=== PATIENT | male | born 1940 | race Caucasian/White ===

== ENCOUNTER 2017-05-14 13:06 | Inpatient (IN) | payer MEDICARE ==
[~2017-05-14] VITALS: Ht 172.7 cm; Wt 90.9 kg
[2017-05-14] VITALS (9 sets, daily range): BP systolic 138–157; BP diastolic 70–79; PULSE 49–77; RESP 15–18; TEMP 98–98.7; O2SAT 96–98
[2017-05-14] MEDS ORDERED: NITROGLYCERIN 0.4 MG SL 25 TABS/BTL SL ONE (13:11)
[2017-05-14] MEDS ORDERED: HEPARIN SODIUM - IV 10,000 UNITS/10 ML VIAL ONE ×2 (13:11→13:14)
[2017-05-14] MEDS ORDERED: ASPIRIN 81 MG CHEW TAB ONE (13:11)
[2017-05-14] MEDS ORDERED: HEPARIN SODIUM - IV 10,000 UNITS/10 ML VIAL IV PUSH STA (13:14)
[2017-05-14] MEDS ORDERED: HEPARIN-NS/PF INJ 1,000 ML ONE (13:14)
[2017-05-14] MEDS ORDERED: SODIUM CHLOR 0.9% 1000 ML INJ 1,000 ML IV ONE (13:14)
[2017-05-14] MEDS ORDERED: ASPIRIN 81 MG CHEW TAB PO STA (13:14)
[2017-05-14] MEDS ORDERED: SODIUM CHLORIDE 0.9% FLUSH 10 ML FLUSH IVF PRN (13:15)
[2017-05-14] MEDS ORDERED: MIDAZOLAM HCL 2 MG/2 ML VIAL ONE (13:21)
--- NOTE | 2017-05-14 13:27 | PD ---
HPI Chief Complaint: STEMI alert Time Seen by Provider: 13:12 Travel History International Travel<30 days: No Contact w/Intl Traveler<30days: No Traveled to known affect area: No History of Present Illness HPI This patient [place] and developed a sternal chest pain and pressure. He pulled out the side of the road and called 911. He presents as a STEMI alert. His chest pain is 30 minutes duration. It was 10 out of 10 and very severe. He took 2 sublingual nitroglycerin. Paramedics gave him 2 further for a total of 4 sublingual nitroglycerin and pain is now 3 out of 10. He reports history of cardiac disease and has 7 stents but no recent testing. [place] and has no local physician or conveyor worker here. Severity was severe but now moderate. No exacerbating factors. Pain was partially alleviated by sublingual nitroglycerin. [facility] Social History Alcohol Use: No Tobacco Use: No Substance Use: No Allergies-Medications (Allergen,Severity, Reaction): Uncoded Allergies: cranberries (Adverse Reaction, Mild, Rash, 05/14/17) Review of Systems General / Constitutional: No: Fever Eyes: No: Visual changes HENT: No: Headaches Cardiovascular: Positive: Chest Pain or Discomfort Respiratory: No: Shortness of Breath Gastrointestinal: No: Abdominal Pain Genitourinary: No: Dysuria Musculoskeletal: No: Pain Skin: No Rash Neurologic: No: Weakness Psychiatric: No: Depression Endocrine: No: Polydipsia Hematologic/Lymphatic: No: Easy Bruising Physical Exam Narrative GENERAL: Well-nourished, well-developed patient with chest pain . SKIN: Focused skin assessment reveals no rash and nodules. Skin is Warm and dry. HEAD: Atraumatic. Normocephalic. EYES: Pupils equal and round. No scleral icterus. No injection or drainage. ENT: No nasal bleeding or discharge. Mucous membranes pink and moist. NECK: Trachea midline. No JVD. CARDIOVASCULAR: Regular rate and rhythm. No murmur appreciated. RESPIRATORY: No accessory muscle use. Clear to auscultation. Breath sounds equal bilaterally. GASTROINTESTINAL: Abdomen soft, non-tender, nondistended. Hepatic and splenic margins not palpable. MUSCULOSKELETAL: No obvious deformities. No clubbing. No cyanosis. No edema. NEUROLOGICAL: Awake and alert. No obvious cranial nerve deficits. Motor grossly within normal limits. Normal speech. PSYCHIATRIC: Appropriate mood and affect; insight and judgment normal. Data Data Last Documented VS Vital Signs Date Time Temp Pulse Resp B/P (MAP) Pulse Ox O2 Delivery O2 Flow Rate FiO2 05/14/17 13:13 64 18 138/79 (98) 98 05/14/17 13:10 Non-Rebreather 15.00 05/14/17 13:10 98.0 Orders Orders Heparin Inj (Heparin Inj) (05/14/17 13:11) Aspirin Chew (Aspirin Chew) (05/14/17 13:11) Nitroglycerin Sl (Nitrostat Sl) (05/14/17 13:11) Cardiac Catheterization (05/14/17 ) Heparin-Ns/Pf Inj (Heparin-Ns/Pf Inj) (05/14/17 13:14) Heparin Inj (Heparin Inj) (05/14/17 13:14) Troponin I (05/14/17 13:14) Ckmb (Isoenzyme) Profile (05/14/17 13:14) Complete Blood Count With Diff (05/14/17 13:14) I-Stat Profile (05/14/17 13:14) I-Stat Creatinine (05/14/17 13:14) Calcium (05/14/17 13:14) Magnesium (Mg) (05/14/17 13:14) Prothrombin Time / Inr (Pt) (05/14/17 13:14) Act Partial Throm Time (Ptt) (05/14/17 13:14) B-Type Natriuretic Peptide (05/14/17 13:14) Chest, Single Ap (05/14/17 13:14) Electrocardiogram (05/14/17 13:14) Oxygen Administration (05/14/17 13:14) Iv Access Insert/Monitor (05/14/17 13:14) Oximetry (05/14/17 13:14) Sodium Chlor 0.9% 1000 Ml Inj (Ns 1000 M (05/14/17 13:14) Sodium Chloride 0.9% Flush (Ns Flush) (05/14/17 13:15) Heparin Inj (Heparin Inj) (05/14/17 13:14) Aspirin Chew (Aspirin Chew) (05/14/17 13:14) Midazolam Inj (Versed Inj) (05/14/17 13:21) Fentanyl Inj (Fentanyl Inj) (05/14/17 13:21) Labs Laboratory Tests Test 05/14/17 13:10 White Blood Count 8.8 TH/MM3 Red Blood Count 4.06 MIL/MM3 Hemoglobin 13.2 GM/DL Bedside Hemoglobin 12.9 G/DL Hematocrit 39.0 % Bedside Hematocrit 38.0 % Mean Corpuscular Volume 96.0 FL Mean Corpuscular Hemoglobin 32.4 PG Mean Corpuscular Hemoglobin Concent 33.8 % Red Cell Distribution Width 14.6 % Platelet Count 246 TH/MM3 Mean Platelet Volume 9.4 FL Neutrophils (%) (Auto) 51.1 % Lymphocytes (%) (Auto) 34.7 % Monocytes (%) (Auto) 8.8 % Eosinophils (%) (Auto) 4.8 % Basophils (%) (Auto) 0.6 % Neutrophils # (Auto) 4.5 TH/MM3 Lymphocytes # (Auto) 3.0 TH/MM3 Monocytes # (Auto) 0.8 TH/MM3 Eosinophils # (Auto) 0.4 TH/MM3 Basophils # (Auto) 0.1 TH/MM3 CBC Comment DIFF FINAL Differential Comment Bedside Sodium 138 MMOL/L Bedside Potassium 4.6 MMOL/L Bedside Chloride 105 MMOL/L Bedside Blood Urea Nitrogen 24 MG/DL Bedside Creatinine 1.1 MG/DL Bedside Glucose 128 MG/DL [facility] Medical Decision Making Medical Screen Exam Complete: Yes Emergency Medical Condition: Yes Medical Record Reviewed: Yes Differential Diagnosis STEMI, angina, ACS Narrative Course I have reviewed the patient's electronic medical record. I reviewed multiple EKGs taken by paramedics. Patient arrives critically ill with acute STEMI 2 IVs placed I gave him 2 further baby aspirin for total of 4 I reviewed our EKG which shows ST elevation in leads V2 through V4 with reciprocal changes in inferior leads Patient meets criteria for STEMI alert. I gave him a 60 mg/kg heparin bolus Blood pressure now 130s and in a sinus rhythm Extended cardiac monitoring reveals sinus rhythm without ectopy I reviewed in detail with conveyor worker Dr. Solis He will take him for emergent heart catheterization I'm going to admit the patient to [facility] given his acute anterior STEMI I've ordered the STEMI protocol CBC is normal Metabolic profile is normal I reviewed his chest x-ray which suggest a degree of pulmonary edema although he didn't complain of shortness of breath. Patient has gone to the catheterization lab by the time the x-rays put on line for me to review Critical Care Narrative Aggregate critical care time was 32 minutes. Time to perform other separately billable procedures was not included in the critical care time. My time did not include minutes spent treating any other patients simultaneously or on activities that did not directly contribute to the patient's treatment. The services I provided to this patient were to treat and/or prevent clinically significant deterioration that could result in: Myocardial injury, heart failure with reduced ejection fracture, cardiopulmonary arrest, cardiac arrhythmia I provided critical care services requiring my management, as noted below: Chart data review, documentation time, medication orders and management, vital sign assessments/reviewing monitor data, ordering and reviewing lab tests, ordering and interpreting/reviewing x-rays and diagnostic studies, care of the patient and discussion of the patient with the admitting physicians. Diagnosis Primary Impression: ST elevation UT (STEMI) Qualified Codes: I21.02 - ST elevation (STEMI) myocardial infarction involving left anterior descending coronary artery Admitting Information Admitting Physician Requests: Admit Trevin Mathew MD May 14, 2017 13:27
[2017-05-14 13:32] LABS: AUTOMATED NEUTROPHIL # 4.5 TH/MM3 (1.8-7.7); BASOPHIL # 0.1 TH/MM3 (0-0.2); BASOPHIL % 0.6 % (0.0-2.0); EOSINOPHIL # 0.4 TH/MM3 (0-0.4); EOSINOPHIL % 4.8 % (0.0-4.0); HEMOGLOBIN 13.2 GM/DL (13.0-17.0); LYMPH % 34.7 % (9.0-44.0); MEAN CORPUSCULAR HEMOGLOBIN 32.4 PG (27.0-34.0); MEAN CORPUSCULAR HGB CONC 33.8 % (32.0-36.0); MEAN PLATELET VOLUME 9.4 FL (7.0-11.0); MONO % 8.8 % (0.0-8.0); MONOCYTE # 0.8 TH/MM3 (0-0.9); NEUT % 51.1 % (16.0-70.0); PLATELET COUNT 246 TH/MM3 (150-450); RED BLOOD COUNT 4.06 MIL/MM3 (4.50-5.90); RED CELL DISTRIBUTION WIDTH 14.6 % (11.6-17.2); WHITE BLOOD COUNT 8.8 TH/MM3 (4.0-11.0)
[2017-05-14 13:41] LABS: PROTHROMBIN TIME - PATIENT 9.9 SEC (9.8-11.6)
--- NOTE | 2017-05-14 13:48 | RADRPT ---
EXAM DATE/TIME: 05/14/2017 13:20 [place] COMPARISON: No previous studies available for comparison. INDICATIONS : Stemi alert, prior stents MEDICAL HISTORY : Myocardial infarction. SURGICAL HISTORY : Coronary artery stent. ENCOUNTER: Initial ACUITY: 1 day PAIN SCORE: 10/10 LOCATION: Chest FINDINGS: Portable AP view of the chest demonstrates a normal-sized cardiac silhouette. Lungs are mildly underi nflated. There is interstitial prominence bilaterally with lower lung zone predominance. No pleural e ffusion or pneumothorax is identified. The bones and soft tissues demonstrate no acute finding. CONCLUSION: Mild underinflation with mild interstitial prominence bilaterally. Some of this could be related to a telectasis at the lung bases. Mild pulmonary edema could have a similar appearance. Neftaly Monae MD on May 14, 2017 at 13:44 Board Certified Radiologist. This report was verified electronically.
[2017-05-14 13:52] LABS: CALCIUM 9.1 MG/DL (8.5-10.1)
[2017-05-14 14:07] LABS: TROPONIN I 0.02 NG/ML (0.02-0.05)
[2017-05-14 14:09] LABS: MAGNESIUM 2.3 MG/DL (1.5-2.5)
[2017-05-14] MEDS ORDERED: CANGRELOR TETRASODIUM 50,000 MCG VIAL ONE (14:23)
[2017-05-14] MEDS ORDERED: TICAGRELOR 90 MG TAB PO ONE ×2 (14:26→15:45)
--- NOTE | 2017-05-14 15:04 | CATHPROC ---
[employer] HIS Report Study Information Study Number Admission Scheduled Start Study Start [id number] May 14 2017 1:06PM 05/14/2017 May 14 2017 1:19PM [facility] Cardiac Catheterization Admit Source Facility Department Emergency department [facility] - Desk Pen Set Assembler Physician and Clinical Staff Initial Mehul Ward Gis Developer Yang RN, Edgar Recorder Lencho Lopez,RT(R) Scrub Burt, Celi,PAINTING MANAGER TECH2 Procedures Performed Procedure Location (Site) Vessel Name Angiogram LV LV Ventricle Coronary Angiograms LCA Left Coronary Coronary Angiograms RCA Right Coronary Drug Eluting Inflatio LAD Mid Left Coronary L Heart Cath PTCA LAD Mid Left Coronary Wire insertion Fem Art (right) Femoral Art Equipment Time Plating Technician Description Size Mfg Part Number Used/Scraped WIRE, BALANCE MIDDLEWEIGHT [id number] 13:59 [employer] 190CM Used 190CM *[id number] TRANSDUCER, TRUWAVE [id number] 13:35 [employer] * Used W/STOCKCOCK *[id number] *[id number] 14:26 DAIG[employer]. [employer] ANGIOSEAL, FR6 VIP FR 6 Used *[id number] 13:35 [employer] INDUSTRIES PACK, CCL CUSTOM * Used *[id number] 13:35 [employer] PACER PEN, SKIN DUAL W/ RULER * Used *[id number] 13:53 [employer] AR MOD DXTERITY CATHETER FR 5 [id number] Used [id number] 14:08 [employer] BALLOON, 2.5 X 12MM EUPHORA 12MM Used *[id number] 14:01 [employer] CATHETER, EXPORT ASPIRATON Used *[id number] 13:55 [employer] JL 4.0 DXTERITY CATHETER FR 5 Used *[id number] 14:13 [employer] STENT, 2.75 15MM HUMPHREY 2.75 15MM Used *[id number] 14:09 [employer] MEDICAL 30 HESHAM INDEFLATOR Used *[id number] [id number] 14:23 [employer] PIGTAIL ANG. CATHETER FR 5 Used *[id number] 14:00 [employer] SHEATH, FR6.5 PRELUDE 11CM FR 6.5 038ACT Used *[id number] 13:35 [employer] WIRE, 3MMJ .035 180CM 180CM Used *[id number] PROBE COVER, STERILE [id number] 13:35 [employer] * Used ULTRASOUND W/ GEL *[id number] 13:35 NAMIC MANIFOLD, 4 PORT * Used *[id number] 13:35 NAMIC TUBING, HIGH PRESSURE 48" 48" Used *[id number] 13:35 [employer] OMNIPAQUE, 350 MG, 150ML 150ML [id number] Used [id number] 13:35 [employer],WARM AIR CCL * Used *[id number] 13:35 [employer] SHEATH, FR5 TERUMO (10CM) FR 5 Used *[id number] Equipment Model, Serial, Lot Number and Expiration Data Description Model Number Serial Number Lot Number Expiration Date ANGIOSEAL, FR6 VIP [id number] 12-27-2017 CATHETER, EXPORT ASPIRATON [id number] 12-20-2018 STENT, 2.75 15MM HUMPHREY [id number] 12-26-2018 History: Allergies Allergy Reaction cranberries Rash History: Risk Factors Family History of Hypertension Dyslipidemia Previous [place] Previous Heart Failure Premature CAD Yes No No Yes Yes Prior Valve Prior PCI Prior PCIDate Prior CABG Surgery No Yes 04/29/2004 No Cerebrovascular Peripheral Artery Chronic Lung On Dialysis Diabetes Disease Disease Disease No Yes No No No History: Stress Tests Stress or Imaging Studies Performed No History: Other Current Smoker No Labs Hgb (g/dl) Hct (%) 11.60-17.00 35.00-51.00 12.9 38 Glucose (mg/dl) BUN (mg/dl) Creatinine (mg/dl) BUN:Creatinine (1:x) 74.00-106.00 7.00-18.00 0.50-1.30 10.00-20.00 128 24 1.1 21.8 K (meq/l) 3.50-5.10 4.6 CPK-MB (ng/ML) 0.50-3.60 Not Drawn Medication Medication Total Dose (Bolus/Oral) Medication Total Dosage/Unit 1% XYLOCAINE 20 mL BRILINTA 180 mg FENTANYL 50 mcg HEPARIN 6000 units NTG (IC) 600 mcg VERSED 2 mg Medications (Bolus/Oral) Medication Time Given Dosage/Unit Administered By Reason FENTANYL 05/14/2017 1:48:07 PM 50 mcg Edgar Soria RN 50 mcg FENTANYL given in lab by Edgar Soria RN in Left Antecubital via Peripheral IV. Ordered by Mehul Henderson. VERSED 05/14/2017 1:49:26 PM 2 mg Edgar Soria RN 2 mg VERSED given in lab by Edgar Soria RN in Left Antecubital via Peripheral IV. Ordered by Mehul Solis. 1% XYLOCAINE 05/14/2017 1:50:28 PM 20 mL Mehul Solis 20 mL 1% XYLOCAINE given in lab by Mehul Solis via Subcutaneous. Ordered by Mehul Solis. HEPARIN 05/14/2017 1:59:00 PM 4000 units Mehul Solis 4000 units HEPARIN given in lab by Mehul Solis in Left Antecubital via Peripheral IV. Ordered by Mehul Solis. NTG (IC) 05/14/2017 2:06:36 PM 200 mcg Mehul Solis 200 mcg NTG (IC) given in lab by Mehul Solis via Intra-coronary. Ordered by Mehul Solis. NTG (IC) 05/14/2017 2:10:56 PM 100 mcg Mehul Solis 100 mcg NTG (IC) given in lab by Mehul Solis via Intra-coronary. Ordered by Mehul Solis. HEPARIN 05/14/2017 2:11:23 PM 2000 units Edgar Soria RN 2000 units HEPARIN given in lab by Edgar Soria RN in Left Antecubital via Peripheral IV. Ordered by Mehul Solis. NTG (IC) 05/14/2017 2:16:19 PM 100 mcg Mehul Solis 100 mcg NTG (IC) given in lab by Mehul Solis via Intra-coronary. Ordered by Mehul Solis. NTG (IC) 05/14/2017 2:19:09 PM 100 mcg Mehul Solis 100 mcg NTG (IC) given in lab by Mehul Solis via Intra-coronary. Ordered by Mehul Solis. NTG (IC) 05/14/2017 2:20:24 PM 100 mcg Mehul Solis 100 mcg NTG (IC) given in lab by Mehul Solis via Intra-coronary. Ordered by Mehul Solis. BRILINTA 05/14/2017 2:36:13 PM 180 mg Edgar Soria RN 180 mg BRILINTA given in lab by Edgar Soria RN via Oral. Ordered by Mehul Solis. Medication (Drip) Medication Time Given Dosage/Unit Concentration/Unit Diluent (ml) Solution IV Solutions 05/14/2017 1:30:11 PM 0 mL (IV) 500 NaCl .9 Patient arrived on IV Solutions given by Mehul Solis in Left Antecubital via Peripheral IV. Pump/ Drip Flow = 20 ml/hr using NaCl .9. Ordered by Mehul Solis. KENGREAL BOLUS 05/14/2017 2:30:39 PM 13.5 mL 13.5 mL KENGREAL BOLUS given in lab by Edgar Soria RN via Peripheral IV. Ordered by Mehul Solis. KENGREAL DRIP 05/14/2017 2:41:41 PM 4.037 mcg/kg/min 50 mg 250 NaCl .9 4.037 mcg/kg/min KENGREAL DRIP given in lab by Edgar Soria RN via Peripheral IV. Pump/Drip Flow = 10 9 ml/hr using NaCl .9 with a concentration of 50 mg in 250 ml. Ordered by Mehul Solis. Initial Case Assessment Cardiovascular HR Rhythm NIBP Chest Pain 60 stemi 163/86 0 Edema Present Skin color Skin None Normal Warm Dry Circulatory - Right Pulses Dorsalis Pedis Femoral 3 3 Scale (0,1,2,3,4,d) Circulatory - Left Pulses Dorsalis Pedis Femoral 3 3 Scale (0,1,2,3,4,d) Neurological State Oriented to time-place- Alert Moves all extremities person Respiration - General Respiration Rate SpO2 (%) O2 (lpm) (B/min) 18 98 0 Final Case Assessment Cardiovascular HR Rhythm NIBP Chest Pain 60 sr 140/76 0 Edema Present Skin color Skin None Normal Warm Dry Circulatory - Right Pulses Dorsalis Pedis Femoral 3 3 Scale (0,1,2,3,4,d) Circulatory - Left Pulses Dorsalis Pedis Femoral 3 3 Scale (0,1,2,3,4,d) Neurological State Oriented to time-place- Alert Moves all extremities person Respiration - General Respiration Rate SpO2 (%) O2 (lpm) (B/min) 18 98 0 Chronological Log Time Study Chronological Log 13:27:39 Patient arrived via Bed. 13:27:45 Patient Name, D.O.B, / Armband Verified By R.N. 13:29:53 Patient has been NPO for Less than 6Hrs. 13:29:54 Skin Breakdown-none present per patient. 13:29:55 Patient Warmer Placed on the Table. 13:30:04 Disposable Defibrillator Pads Placed On Patient. 13:30:10 A # 20 IV was noted in the Antecubital (left). Grade = 0 Patient arrived on IV Solutions given by Mehul Solis in Left Antecubital via Peripheral IV. Pump/Drip Flow = 20 13:30:11 ml/hr using NaCl .9. Ordered by Mehul Solis. Assessment: Initial Case, HR=60 BPM, Rhythm=stemi, RPFI=867/86 mmhg, Chest Pain=0, Edema=None, Color=Normal, Skin = Warm, Dry Right Pulses: Andrade Ped=3, Femoral=3 13:30:19 Left Pulses: Andrade Ped=3, Femoral=3 Neurological: State=Alert, Ox3, JIMENEZ Respiration: Resp=18 B/min, SpO2=98 %, O2=0 lpm Vitals capture started with the following parameters, Patient=Adult, Interval=5 min, Initial Pr qrxzsp=438 mmHg, 13:30:48 Deflation Rate=5 mmHg, Cuff placed on Left Arm 13:31:34 A # 20 IV was noted in the Hand (right). Grade = 0 13:32:03 HR=50 bpm, RIFB=992/86 mmhg, SpO2=97.0 %, Resp=20 B/min 13:33:11 History and physical on the chart or being dictated. 13:33:18 Reference ECG taken 13:33:51 Bilateral groins prepped with 2% chlorhexidine, and draped after a 3 minute waiting time. 13:36:29 Pressure channel 1 zeroed. 13:36:30 HR=57 bpm, CIFU=604/78 mmhg, SpO2=95.0 %, Resp=24 B/min, Elmore=2 13:38:33 MD paged 13:41:31 HR=53 bpm, RWTN=070/78 mmhg, SpO2=97.0 %, Resp=20 B/min, Elmore=2 13:43:47 Reference ECG taken 13:45:01 MD arrived. 13:46:32 HR=51 bpm, HNJU=920/72 mmhg, SpO2=98.0 %, Resp=15 B/min, Elmore=2 13:48:07 50 mcg FENTANYL given in lab by Edgar Soria RN in Left Antecubital via Peripheral IV. Orde red by Mehul Solis. 13:49:26 2 mg VERSED given in lab by Edgar Soria RN in Left Antecubital via Peripheral IV. Ordered by Mehul Solis. Time Out. Correct patient, correct procedure, correct physician, power injector not loaded with contrast with surgical 13:50:23 team present. Time Out Concurred by MD and individual staff in procedure. 13:50:25 Case Start 13:50:28 20 mL 1% XYLOCAINE given in lab by Mehul Solis via Subcutaneous. Ordered by Alpesh Solis. 13:51:27 HR=60 bpm, EPXR=273/78 mmhg, SpO2=94.0 %, Resp=21 B/min, Elmore=2 13:51:39 Access site was Right Femoral Artery. 13:51:49 A SHEATH, FR5 TERUMO (10CM) FR 5 was advanced into the Fem Art (right) using the Percutaneo us technique. 13:52:20 Activated Clotting Time Drawn A AR MOD DXTERITY CATHETER FR 5 was advanced over a wire. OMNIPAQUE, 350 MG, 150ML 150ML was us ed for 13:52:44 injections. Recorded Pressure: Ao, HR=51, Condition=Condition 1 13:53:55 (Aorta) Ao 146/54/87 13:54:28 The RCA was injected and visualized at various angles. OMNIPAQUE, 350 MG, 150ML 150ML used . 13:54:50 Catheter was removed A JL 4.0 DXTERITY CATHETER FR 5 was advanced over a wire. OMNIPAQUE, 350 MG, 150ML 150ML was us ed for 13:54:52 injections. 13:55:43 ACT (Normal Range 90-180) = 180 13:56:02 The LCA was injected and visualized at various angles. OMNIPAQUE, 350 MG, 150ML 150ML used . 13:56:30 HR=58 bpm, OEDI=100/76 mmhg, SpO2=95.0 %, Resp=18 B/min, Elmore=2 13:58:02 Catheter was removed 13:59:00 4000 units HEPARIN given in lab by Mehul Solis in Left Antecubital via Peripheral IV. O rdered by Mehul Solis. A SHEATH, FR6.5 PRELUDE 11CM FR 6.5 was exchanged in the Fem Art (right). This was necessary in order to 13:59:22 accomodate a larger catheter. A XBLAD 4.0 GUIDE CATHETER FR 6 was advanced over a wire. OMNIPAQUE, 350 MG, 150ML 150ML was us ed for 14:00:57 injections. 14:01:31 HR=56 bpm, BPVO=809/76 mmhg, SpO2=96.0 %, Resp=18 B/min, Elmore=2 14:01:51 A WIRE, BALANCE MIDDLEWEIGHT 190CM 190CM was inserted via Fem Art (right). 14:02:46 Interventional wire has crossed the lesion 14:03:40 Aspiration catheter inserted. Mid LAD. 14:04:58 Aspiration in progress. Mid LAD. 14:05:39 Aspiration Catheter was removed. 14:06:32 HR=56 bpm, PNLC=161/70 mmhg, SpO2=96.0 %, Resp=18 B/min, Elmore=2 14:06:36 200 mcg NTG (IC) given in lab by Mehul Solis via Intra-coronary. Ordered by Alpesh Solis. 14:07:03 Activated Clotting Time Drawn A BALLOON, 2.5 X 12MM EUPHORA 12MM was inserted over WIRE, BALANCE MIDDLEWEIGHT 190CM 190CM via the 14:08:24 LAD Mid. A BALLOON, 2.5 X 12MM EUPHORA 12MM over a WIRE, BALANCE MIDDLEWEIGHT 190CM 190CM in the LAD Mid was 14:08:44 inflated using a 30 HESHAM INDEFLATOR at 8 hesham for 13 sec. 14:10:39 Balloon Removed. 14:10:56 100 mcg NTG (IC) given in lab by Mehul Solis via Intra-coronary. Ordered by Alpesh Solis. 14:11:23 2000 units HEPARIN given in lab by Edgar Soria RN in Left Antecubital via Peripheral IV. O rdered by Mehul Solis. 14:11:33 HR=62 bpm, LKFI=295/52 mmhg, SpO2=95.0 %, Resp=20 B/min, Elmore=2 A STENT, 2.75 15MM HUMPHREY 2.75 15MM was advanced through a XBLAD 4.0 GUIDE CATHETER FR 6 over a W SERINA, 14:13:35 BALANCE MIDDLEWEIGHT 190CM 190CM. A STENT, 2.75 15MM HUMPHREY 2.75 15MM was deployed using a 30 HESHAM INDEFLATOR at 12 atmospheres for 36 seconds 14:14:02 in the LAD Mid. 14:15:42 Delivery device removed 14:16:19 100 mcg NTG (IC) given in lab by Mehul Solis via Intra-coronary. Ordered by Alpesh Solis 14:16:24 HR=59 bpm, SQSP=082/63 mmhg, SpO2=95.0 %, Resp=20 B/min, Elmore=2 14:18:28 Power injector being loaded by Edgar Soria, verified by Brittney Dallas. 14:19:02 Wire removed 14:19:09 100 mcg NTG (IC) given in lab by Mehul Solis via Intra-coronary. Ordered by Alpesh Solis 14:20:24 100 mcg NTG (IC) given in lab by Mehul Solis via Intra-coronary. Ordered by Alpesh Solis 14:21:31 HR=62 bpm, DMRR=225/62 mmhg, SpO2=92.0 %, Resp=20 B/min, Elmore=2 14:22:24 Catheter was removed 14:22:47 An injection in the Fem Art (right) was made through the SHEATH, FR6.5 PRELUDE 11CM FR 6.5. A PIGTAIL ANG. CATHETER FR 5 was advanced over a wire. OMNIPAQUE, 350 MG, 150ML 150ML was used for 14:23:29 injections. Recorded Pressure: LV, HR=62, Condition=Condition 1 14:24:29 (Left Ventricle) LV 147/14/29 14:25:02 The LV was injected at 10 cc/sec for a total of 30. OMNIPAQUE, 350 MG, 150ML 150ML used. Recorded Pressure: LV, Ao, HR=64, Condition=Condition 1 14:25:59 (Left Ventricle) LV 142/12/25, (Aorta) Ao 128/55/84 14:26:22 Catheter was removed 14:26:28 HR=64 bpm, YYGY=839/66 mmhg, SpO2=96.0 %, Resp=25 B/min 14:26:31 Case End 14::42 ANGIOSEAL, FR6 VIP FR 6 placement in the Fem Art (right) 14:28:44 No case complications noted. 14:28:47 Cine recording checked. 14:28:57 Bedside Report will be given. 14:29:00 Implantable Device card placed in patient's chart. 14:29:05 Contrast Scanned 14:29:09 A Left Heart Cath was performed. 14:30:39 13.5 mL KENGREAL BOLUS given in lab by Edgar Soria RN via Peripheral IV. Ordered by Mehul Burns. 14:31:31 HR=61 bpm, BWAR=817/67 mmhg, SpO2=97.0 %, Resp=26 B/min 14:36:13 180 mg BRILINTA given in lab by Edgar Soria RN via Oral. Ordered by Mehul Solis. 14:36:32 HR=58 bpm, QZGX=620/74 mmhg, ZfB8=043.0 %, Resp=24 B/min, Elmore=2 14:41:31 HR=57 bpm, BAAV=807/76 mmhg, SpO2=99.0 %, Resp=24 B/min, Elmore=2 4.037 mcg/kg/min KENGREAL DRIP given in lab by Edgar Soria RN via Peripheral IV. Pump/Drip Fl ow = 109 ml/hr using 14:41:41 NaCl .9 with a concentration of 50 mg in 250 ml. Ordered by Mehul Solis. Assessment: Final Case, HR=60 BPM, Rhythm=sr, VEUT=539/76 mmhg, Chest Pain=0, Edema=None, Pollock r=Normal, Skin = Warm, Dry Right Pulses: Andrade Ped=3, Femoral=3 14:42:39 Left Pulses: Andrade Ped=3, Femoral=3 Neurological: State=Alert, Ox3, JIMENEZ Respiration: Resp=18 B/min, SpO2=98 %, O2=0 lpm 14:49:41 [facility] Study - Contrast Media Used In Study Contrast Total Opened (mL) Total Used (mL) Total Wasted (mL) Omnipaque 200 200 0 End Study - Maximum Contrast Load Max Contrast Load (mL) 409.1 End Study - Radiation Exposure Fluoro Time (minutes) 5.4 End Study - Patient Disposition Complications Transferred To Telemetry Bed
[2017-05-14] MEDS ORDERED: IOHEXOL 350 MG/ML 100 ML BTL (for Cath Lab) OTHER ONE (15:20)
[2017-05-14] MEDS ORDERED: SODIUM CHLOR 0.9% 1000 ML INJ 1,000 ML IV SCH (15:43)
[2017-05-14] MEDS ORDERED: TEMAZEPAM 15 MG CAP PO PRN (15:45)
[2017-05-14] MEDS ORDERED: ACETAMINOPHEN 325 MG TAB PO PRN (15:45)
[2017-05-14] MEDS ORDERED: MISC INFORMATION XX ONE (15:45)
[2017-05-14] MEDS ORDERED: SODIUM CHLOR 0.9% 250 ML INJ 250 ML IV PRN (15:45)
[2017-05-14] MEDS ORDERED: PILL SPLITTER OTHER PRN (16:00)
--- NOTE | 2017-05-14 17:03 | MB ---
cc: MEHUL YUNG MD DATE OF CONSULTATION: 05/14/2017 REASON FOR CONSULTATION: HISTORY OF PRESENT ILLNESS: Mr. Richardson is a 76 year-old white male with a history of coronary artery disease and RCA stenting in the remote past. [place] he developed substernal chest pressure. He presented with ST elevation myocardial infarction. His pain was 10/10 and diminished to 3. He was brought to the Cardiac Catheterization Laboratory for emergent cardiac catheterization. PAST MEDICAL HISTORY: Positive for coronary artery disease. H/o RCA stenting ALLERGIES CRANBERRIES MEDICATIONS: Recorded in the chart. SOCIAL HISTORY The patient does not smoke, does not drink alcohol. FAMILY HISTORY: Family history is negative for heart disease. REVIEW OF SYSTEMS: Otherwise negative. PHYSICAL EXAMINATION VITAL SIGNS: Blood pressure 138/79, pulse 64 regular. HEENT: Negative. 2+ carotid upstrokes. No bruits. LUNGS: Clear. HEART: Regular with no murmur, gallop or rub. ABDOMEN: No bruits. EXTREMITIES: Without edema. 2+ peripheral pulses. NEUROLOGIC: Exam is grossly nonfocal. EKG was reviewed and showed anteroseptal ST elevation consistent with acute anteroseptal myocardial infarction. LABORATORY DATA Hemoglobin 12.9, potassium 4.6, creatinine 1.1, troponin 0.02, CK 359. DIAGNOSIS: 1. Acute anterior wall myocardial infarction. 2. Coronary artery disease, history of coronary stenting. DISPOSITION Mr. Richardson will undergo emergent cardiac catheterization, coronary intervention. He understands the risks and benefits and wishes to proceed. Mehul Yung MD OQ/RADHA /3:05 PM /4:31 PM MTDD
--- NOTE | 2017-05-14 19:37 | MA ---
cc: WILBER YUNG MD DATE: 05/14/2017 INDICATIONS: ST-elevation myocardial infarction. PROCEDURE PERFORMED 1. Retrograde left heart catheterization with left ventriculography and selective coronary angiography. 2. Thrombectomy, angioplasty and stenting of the mid left anterior descending coronary artery. 3. Moderate sedation. ACCESS SITE Right femoral artery. EQUIPMENT USED 5 Ukrainian pigtail catheter, 5 Ukrainian JL4 and AR modified coronary artery catheters. XB LAD 4.0 guide, BMW wire, 2.5 balloon for pre-dilatation, 2.75 x 15 mm [place] drug-eluting stent at 12 atmospheres to the mid LAD. [place] thrombectomy catheter. MEDICATIONS Versed IV, Fentanyl IV. Heparin IV. Kengreal IV, Brilinta 180 milligrams p.o., nitroglycerin IC. CONTRAST Omnipaque 200 cc. COMPLICATIONS None. BLOOD LOSS: Less than 10 cc. METHOD OF HEMOSTASIS AngioSeal closure. RESULTS: HEMODYNAMICS Heart rate 60 beats per minute, LV end-diastolic pressure 12 mmHg, left ventricle 148/12, aorta 128/55/85. LEFT VENTRICULOGRAPHY Ejection fraction 55%, wall motion: distal inferoapical hypokinesis, no mitral regurgitation. CORONARY ANGIOGRAPHY The main coronary artery is patent. The left anterior descending artery has 50% stenosis at its ostium. It is totally occluded in the mid portion with thrombus. This is a type C lesion. Lesion length 10 millimeters. Pre MAICOL flow 0, post MAICOL flow 3, post stenosis 0. First diagonal artery is patent. Left circumflex artery has proximal sequential 30% stenosis. OM1 patent. OM2 patent. Right coronary artery is totally occluded in the mid portion. A stent is occluded in the distal vessel. Distal right coronary fills by [id number] collaterals. Post intervention angiography with excellent patency of the stented segment and no evidence of dissection, thrombosis, or distal embolization. DIAGNOSIS: 1. ST-elevation myocardial infarction. 2. Coronary artery disease with chronic total occlusion of the mid-right coronary artery and acute occlusion of the mid left anterior descending coronary artery. 3. Successful thrombectomy, angioplasty and stenting of the mid left anterior descending coronary artery. 4. Overall preserved left ventricular systolic function. 5. Very mild aortic stenosis. DISPOSITION Mr. Richardson will be monitored on telemetry after his procedure. We will continue therapy with Brilinta and baby aspirin. We will also continue and titrate aggressive modification of his cardiac risk factors. MD CARLOS Roland /2:45 PM /7:13 PM BERNICE
[2017-05-14 21:00] LABS: AUTOMATED NEUTROPHIL # 4.1 TH/MM3 (1.8-7.7); BASOPHIL % 0.6 % (0.0-2.0); EOSINOPHIL # 0.3 TH/MM3 (0-0.4); HEMOGLOBIN 13.3 GM/DL (13.0-17.0); LYMPH % 27.1 % (9.0-44.0); LYMPHOCYTE # 1.8 TH/MM3 (1.0-4.8); MEAN CELL VOLUME 94.4 FL (80.0-100.0); MEAN CORPUSCULAR HEMOGLOBIN 32.2 PG (27.0-34.0); MEAN CORPUSCULAR HGB CONC 34.1 % (32.0-36.0); MEAN PLATELET VOLUME 8.5 FL (7.0-11.0); MONOCYTE # 0.5 TH/MM3 (0-0.9); NEUT % 60.3 % (16.0-70.0); PLATELET COUNT 209 TH/MM3 (150-450); RED BLOOD COUNT 4.13 MIL/MM3 (4.50-5.90); WHITE BLOOD COUNT 6.7 TH/MM3 (4.0-11.0)
[2017-05-14] MEDS ORDERED: ATORVASTATIN 10 MG TAB PO SCH (21:00)
[2017-05-14] MEDS: METOPROLOL TARTRATE 25 MG TAB PO SCH (21:45)
[2017-05-15] VITALS (11 sets, daily range): BP systolic 147–166; BP diastolic 65–79; PULSE 51–71; RESP 16–18; TEMP 97.9–98.4; O2SAT 98
[2017-05-15] MEDS: TICAGRELOR 90 MG TAB PO SCH ×2 (00:17→09:00)
[2017-05-15] MEDS: METOPROLOL TARTRATE 25 MG TAB PO SCH (09:00)
[2017-05-15] MEDS ORDERED: ASPIRIN 81 MG CHEW TAB PO SCH (09:00)
[2017-05-15] MEDS ORDERED: LISINOPRIL 5 MG TAB PO SCH (09:00)
--- NOTE | 2017-05-15 10:29 | EKG ---
Date Performed: 05/14/2017 Time Performed: 13:07:50 PTAGE: 76 years EKG: SINUS BRADYCARDIA WITH SINUS ARRHYTHMIA RIGHT BUNDLE BRANCH BLOCK MARKED ST ELEVATION, CONS IDER ANTERIOR INJURY ACUTE MS NO PREVIOUS TRACING DOCTOR: Biju Jean Interpretating Date/Time 05/15/2017 10:28:39
--- NOTE | 2017-05-15 10:55 | PD.CONS ---
HPI Service [facility] Consult Requested By Irma Martinez Reason for Consult Medical Management. Primary Care Physician Unknown Diagnoses: History of Present Illness This is as pleasant 76 y/o Male who [place] and developed a sternal chest pain and Pressure, he called 911 was seen in ER as STEMI he had chest pain of 30 minutes duration, 10/10 in intensity, received Nitroglycerin by EMS, to a total of sublingual dosages, his pain improved to 3/10, he has history of CAD and status post Seven stents placement. he is in status post Retrograde heart catheterization with left ventriculography and selective angiography, Thrombectomy, angioplasty, and stenting of the mid left anterior descending coronary artery, moderate sedation , with Diagnosis of ST elevation [place], coronary artery disease with chronic total occlusion of the mid right coronary and acute occlusion of the left anterior descending coronary artery. Overall preserved left ventricular systolic function, seen by his primary eap specialist Doctor Mehul Solis and recommended for discharge will proceed with discharge at this time CARDIAC CATHETERIZATION Pt Name: ELVIS GARCIAANTOINETTE#: [id number]:[id number] By:Mehul Solis, [facility] #: [id number] Review of Systems Constitutional: DENIES: Fever, Chills, Change in appetite Endocrine: DENIES: Heat/cold intolerance Eyes: DENIES: Blurred vision, Eye pain Except as stated in HPI: all other systems reviewed are Neg Past Family Social History Allergies: Coded Allergies: No Known Drug Allergies (Verified Allergy, Unknown, 05/15/17) Uncoded Allergies: cranberries (Adverse Reaction, Mild, Rash, 05/14/17) Past Medical History Hypertension CAD status post PCI and seven stents placement. Controlled diet DM II Past Surgical History Tonsillectomy PCI Reported Medications No medications reported. Active Ordered Medications Current Medications Medications (Trade) Dose Ordered Sig/Ivelisse Route Start Time Stop Time Status Last Admin (NS Flush) 2 ml UNSCH PRN IVF 05/14/17 13:15 (Tylenol) 325 mg Q4H PRN PO 05/14/17 15:45 (Restoril) 15 mg HS PRN PO 05/14/17 15:45 (Aspirin Chew) 81 mg DAILY PO 05/15/17 09:00 05/15/17 09:01 (Lopressor) 12.5 mg BID PO 05/14/17 21:00 05/15/17 09:00 (Prinivil) 5 mg DAILY PO 05/15/17 09:00 05/15/17 09:01 (Lipitor) 80 mg HS PO 05/14/17 21:00 05/14/17 21:45 (Brilinta) 90 mg BID PO 05/15/17 00:00 05/15/17 09:00 (Pill Splitter) 1 ea UNSCH PRN OTHER 05/14/17 16:00 Family History Father with Prostate Cancer. Social History Lives alone in [place] and pass 3 months in this area. he is a Publisher. Physical Exam Vital Signs Vital Signs Date Time Temp Pulse Resp B/P (MAP) Pulse Ox O2 Delivery O2 Flow Rate FiO2 05/15/17 07:04 97.9 66 18 166/79 (108) 98 05/15/17 07:00 56 05/15/17 06:00 61 05/15/17 05:15 51 05/15/17 04:00 51 05/15/17 03:00 52 05/15/17 03:00 98.4 52 16 152/72 (98) 98 05/15/17 02:00 58 05/15/17 01:00 62 05/15/17 00:00 55 05/14/17 23:00 98.7 54 18 148/70 (96) 96 05/14/17 23:00 54 05/14/17 22:00 49 05/14/17 21:00 58 05/14/17 20:00 55 05/14/17 20:00 98.5 55 16 157/76 (103) 98 05/14/17 18:00 77 05/14/17 17:08 77 05/14/17 16:07 57 05/14/17 13:18 05/14/17 13:13 64 18 138/79 (98) 98 05/14/17 13:10 98 Non-Rebreather 15.00 05/14/17 13:10 98.0 64 15 138/79 (98) 98 Non-Rebreather 15.00 Physical Exam GENERAL: Obese patient in no acute distress. SKIN: Focused skin assessment reveals no rash and nodules. Skin is Warm and dry. HEAD: Atraumatic. Normocephalic. EYES: Pupils equal and round. No scleral icterus. No injection or drainage. ENT: No nasal bleeding or discharge. Mucous membranes pink and moist. NECK: Trachea midline. No JVD. CARDIOVASCULAR: Regular rate and rhythm. No murmur appreciated. RESPIRATORY: No accessory muscle use. Clear to auscultation. Breath sounds equal bilaterally. GASTROINTESTINAL: Abdomen soft, non-tender, nondistended. Hepatic and splenic margins not palpable. MUSCULOSKELETAL: No obvious deformities. No clubbing. No cyanosis. No edema. NEUROLOGICAL: Awake and alert. No obvious cranial nerve deficits. Motor grossly within normal limits. Normal speech. PSYCHIATRIC: Appropriate mood and affect; insight and judgment normal. Laboratory Laboratory Tests Test 05/14/17 13:10 05/14/17 20:40 White Blood Count 8.8 6.7 Red Blood Count 4.06 4.13 Hemoglobin 13.2 13.3 Bedside Hemoglobin 12.9 Hematocrit 39.0 39.0 Bedside Hematocrit 38.0 Mean Corpuscular Volume 96.0 94.4 Mean Corpuscular Hemoglobin 32.4 32.2 Mean Corpuscular Hemoglobin Concent 33.8 34.1 Red Cell Distribution Width 14.6 14.0 Platelet Count 246 209 Mean Platelet Volume 9.4 8.5 Neutrophils (%) (Auto) 51.1 60.3 Lymphocytes (%) (Auto) 34.7 27.1 Monocytes (%) (Auto) 8.8 8.0 Eosinophils (%) (Auto) 4.8 4.0 Basophils (%) (Auto) 0.6 0.6 Neutrophils # (Auto) 4.5 4.1 Lymphocytes # (Auto) 3.0 1.8 Monocytes # (Auto) 0.8 0.5 Eosinophils # (Auto) 0.4 0.3 Basophils # (Auto) 0.1 0.0 CBC Comment DIFF FINAL DIFF FINAL Differential Comment Prothrombin Time 9.9 Prothromb Time International Ratio 1.0 Activated Partial Thromboplast Time 21.7 Bedside Sodium 138 Bedside Potassium 4.6 Bedside Chloride 105 Bedside Blood Urea Nitrogen 24 Bedside Creatinine 1.1 Bedside Glucose 128 Calcium Level 9.1 Magnesium Level 2.3 Total Creatine Kinase 359 Creatine Kinase MB 7.2 Creatine Kinase MB % 2.0 Troponin I 0.02 B-Type Natriuretic Peptide 184 Result Diagram: 05/14/172039 Imaging Last Impressions Chest X-Ray 05/14/17 1314 Signed Impressions: Service Date/Time: Sunday, May 14, 2017 13:20 - CONCLUSION: Mild underinflation with mild interstitial prominence bilaterally. Some of this could be related to atelectasis at the lung bases. Mild pulmonary edema could have a similar appearance. Neftaly Monae MD Assessment and Plan Assessment and Plan 1. STEMI started on heparin in ER, started on Cardiac monitoring, status post Emergent left heart Catheterization chest x-ray which suggest a degree of pulmonary edema although he didn't complain of shortness of breath. in a Patient with History of CAD and status post Seven stents placement. Now in status post Retrograde heart catheterization with left ventriculography and selective angiography, Thrombectomy, angioplasty, and stenting of the mid left anterior descending coronary artery, moderate sedation, with Diagnosis of ST elevation [place], coronary artery disease with chronic total occlusion of the mid right coronary and acute occlusion of the left anterior descending coronary artery. Overall preserved left ventricular systolic function, seen by his primary eap specialist Doctor Mehul Solis and recommended for discharge will proceed with discharge at this time 2. Hypertension controlled. as per eap specialist Doctor Mehul Solis No angina, CHF, or arrhythmias. Groin stable. DC home. Continue Brilinta and baby ASA for 1 year. Continue lisinopril, metoprolol, high dose atorvastatin. F/u with me in 2 weeks. Code Status Full Code. Discussed Condition With patient and relative in the room. discharge Home Now. Bruce Che MD May 15, 2017 10:55
[2017-05-15 10:56] LABS: AUTOMATED NEUTROPHIL # 4.6 TH/MM3 (1.8-7.7); BASOPHIL % 0.3 % (0.0-2.0); EOSINOPHIL # 0.3 TH/MM3 (0-0.4); HEMATOCRIT 42.2 % (39.0-51.0); HEMOGLOBIN 14.4 GM/DL (13.0-17.0); LYMPH % 20.7 % (9.0-44.0); LYMPHOCYTE # 1.5 TH/MM3 (1.0-4.8); MEAN CELL VOLUME 95.4 FL (80.0-100.0); MEAN CORPUSCULAR HEMOGLOBIN 32.6 PG (27.0-34.0); MEAN CORPUSCULAR HGB CONC 34.1 % (32.0-36.0); MEAN PLATELET VOLUME 8.7 FL (7.0-11.0); MONO % 10.3 % (0.0-8.0); MONOCYTE # 0.7 TH/MM3 (0-0.9); NEUT % 64.7 % (16.0-70.0); PLATELET COUNT 252 TH/MM3 (150-450); RED BLOOD COUNT 4.42 MIL/MM3 (4.50-5.90); RED CELL DISTRIBUTION WIDTH 14.3 % (11.6-17.2)
[2017-05-15 11:23] LABS: BICARBONATE 29.1 MEQ/L (21.0-32.0); CALCIUM 9.4 MG/DL (8.5-10.1); CREATININE 1.39 MG/DL (0.60-1.30)
[2017-05-15 11:27] LABS: CHOLESTEROL/ HDL RATIO 3.69 RATIO; HDL CHOLESTEROL 49.3 MG/DL (40.0-60.0)
[2017-05-15 11:50] LABS: ALT (GPT) 52 U/L (12-78); AST (GOT) 71 U/L (15-37); DIRECT BILIRUBIN ADULT 0.2 MG/DL (0.0-0.2)
[2017-05-15 12:16] LABS: ALKALINE PHOSPHATASE 62 U/L (45-117); FOLATE 19.1 NG/ML (3.1-17.5); FREE T4 1.03 NG/DL (0.76-1.46); INDIRECT BILIRUBIN 0.8 MG/DL (0.0-0.8); TOTAL PROTEIN 7.8 GM/DL (6.4-8.2)
--- NOTE | 2017-05-15 13:23 | PD.CARD.PN ---
Subjective Subjective Remarks No CP or SOB Objective Medications Current Medications Medications (Trade) Dose Ordered Sig/Ivelisse Route Start Time Stop Time Status Last Admin (NS Flush) 2 ml UNSCH PRN IVF 05/14/17 13:15 (Tylenol) 325 mg Q4H PRN PO 05/14/17 15:45 (Restoril) 15 mg HS PRN PO 05/14/17 15:45 (Aspirin Chew) 81 mg DAILY PO 05/15/17 09:00 05/15/17 09:01 (Lopressor) 12.5 mg BID PO 05/14/17 21:00 05/15/17 09:00 (Prinivil) 5 mg DAILY PO 05/15/17 09:00 05/15/17 09:01 (Lipitor) 80 mg HS PO 05/14/17 21:00 05/14/17 21:45 (Brilinta) 90 mg BID PO 05/15/17 00:00 05/15/17 09:00 (Pill Splitter) 1 ea UNSCH PRN OTHER 05/14/17 16:00 Vital Signs / I&O Vital Signs Date Time Temp Pulse Resp B/P (MAP) Pulse Ox O2 Delivery O2 Flow Rate FiO2 05/15/17 11:30 98.0 71 18 147/65 (92) 98 05/15/17 07:04 97.9 66 18 166/79 (108) 98 05/15/17 07:00 56 05/15/17 06:00 61 05/15/17 05:15 51 05/15/17 04:00 51 05/15/17 03:00 52 05/15/17 03:00 98.4 52 16 152/72 (98) 98 05/15/17 02:00 58 05/15/17 01:00 62 05/15/17 00:00 55 05/14/17 23:00 98.7 54 18 148/70 (96) 96 05/14/17 23:00 54 05/14/17 22:00 49 05/14/17 21:00 58 05/14/17 20:00 55 05/14/17 20:00 98.5 55 16 157/76 (103) 98 05/14/17 18:00 77 05/14/17 17:08 77 05/14/17 16:07 57 I/O 1/1605/14/17 05/14/17 05/15/17 05/15/17 05/15/17 07:00 15:00 23:00 07:00 15:00 23:00 Intake Total 1100 ml 720 ml Output Total 900 ml 850 ml Balance 200 ml -130 ml Intake Oral 500 ml 720 ml IV Total 600 ml Output Urine Total 900 ml 850 ml # Voids 1 Physical Exam GENERAL: In NAD SKIN: Warm and dry. HEAD: Normocephalic. EYES: No scleral icterus. No injection or drainage. NECK: Supple, trachea midline. No JVD or lymphadenopathy. CARDIOVASCULAR: Regular rate and rhythm without murmurs, gallops, or rubs. RESPIRATORY: Breath sounds equal bilaterally. No accessory muscle use. GASTROINTESTINAL: Abdomen soft, non-tender, nondistended. MUSCULOSKELETAL: No cyanosis, or edema. Groin stable. Laboratory Laboratory Tests Test 05/14/17 20:40 05/15/17 10:25 White Blood Count 6.7 TH/MM3 7.0 TH/MM3 Red Blood Count 4.13 MIL/MM3 4.42 MIL/MM3 Hemoglobin 13.3 GM/DL 14.4 GM/DL Hematocrit 39.0 % 42.2 % Mean Corpuscular Volume 94.4 FL 95.4 FL Mean Corpuscular Hemoglobin 32.2 PG 32.6 PG Mean Corpuscular Hemoglobin Concent 34.1 % 34.1 % Red Cell Distribution Width 14.0 % 14.3 % Platelet Count 209 TH/MM3 252 TH/MM3 Mean Platelet Volume 8.5 FL 8.7 FL Neutrophils (%) (Auto) 60.3 % 64.7 % Lymphocytes (%) (Auto) 27.1 % 20.7 % Monocytes (%) (Auto) 8.0 % 10.3 % Eosinophils (%) (Auto) 4.0 % 4.0 % Basophils (%) (Auto) 0.6 % 0.3 % Neutrophils # (Auto) 4.1 TH/MM3 4.6 TH/MM3 Lymphocytes # (Auto) 1.8 TH/MM3 1.5 TH/MM3 Monocytes # (Auto) 0.5 TH/MM3 0.7 TH/MM3 Eosinophils # (Auto) 0.3 TH/MM3 0.3 TH/MM3 Basophils # (Auto) 0.0 TH/MM3 0.0 TH/MM3 CBC Comment DIFF FINAL DIFF FINAL Differential Comment Blood Urea Nitrogen 18 MG/DL Creatinine 1.39 MG/DL Random Glucose 101 MG/DL Calcium Level 9.4 MG/DL Sodium Level 142 MEQ/L Potassium Level 3.8 MEQ/L Chloride Level 105 MEQ/L Carbon Dioxide Level 29.1 MEQ/L Anion Gap 8 MEQ/L Estimat Glomerular Filtration Rate 49 ML/MIN Total Bilirubin 1.0 MG/DL Direct Bilirubin 0.2 MG/DL Indirect Bilirubin 0.8 MG/DL Aspartate Amino Transf (AST/SGOT) 71 U/L Alanine Aminotransferase (ALT/SGPT) 52 U/L Alkaline Phosphatase 62 U/L Total Creatine Kinase 491 U/L Creatine Kinase MB 21.1 NG/ML Creatine Kinase MB % 4.3 % Total Protein 7.8 GM/DL Albumin 4.0 GM/DL Triglycerides Level 161 MG/DL Cholesterol Level 182 MG/DL LDL Cholesterol 101 MG/DL HDL Cholesterol 49.3 MG/DL Cholesterol/HDL Ratio 3.69 RATIO Vitamin B12 Level 243 PG/ML Folate 19.1 NG/ML Free Thyroxine 1.03 NG/DL Thyroid Stimulating Hormone 3rd Gen 1.850 uIU/ML Assessment and Plan Problem List: (1) ST elevation HI (STEMI) ICD Codes: I21.3 - ST elevation (STEMI) myocardial infarction of unspecified site Status: Acute (2) CAD (coronary artery disease) ICD Codes: I25.10 - Atherosclerotic heart disease of [place] coronary artery without angina pectoris (3) Stented coronary artery ICD Codes: Z95.5 - Presence of coronary angioplasty implant and graft Assessment and Plan No angina, CHF, or arrhythmias. Groin stable. DC home. Continue Brilinta and baby ASA for 1 year. Continue lisinopril, metoprolol, high dose atorvastatin. F/ u with me in 2 weeks. Problem Qualifiers (1) ST elevation HI (STEMI): Qualified Codes: I21.02 - ST elevation (STEMI) myocardial infarction involving left anterior descending coronary artery Mehul Solis MD May 15, 2017 13:23
[2017-05-15] MEDS ORDERED: METO25TA3 PO (15:17)
[2017-05-15] MEDS ORDERED: LIPI80TA PO (15:17)
[2017-05-15] MEDS ORDERED: ASPI81 PO (15:17)
[2017-05-15] MEDS ORDERED: LISI10TA3 PO (15:17)
[2017-05-15] MEDS ORDERED: BRIL90TA PO (15:17)
--- NOTE | 2017-05-15 15:19 | HHI.DS ---
Discharge Summary Admission Date May 14, 2017 at 13:41 Discharge Date: May 15, 2017 Admitting Diagnosis acute anterior stemi (1) CAD (coronary artery disease) ICD Code: I25.10 - Atherosclerotic heart disease of [place] coronary artery without angina pectoris Diagnosis: Principal (2) ST elevation [place] (STEMI) ICD Code: I21.3 - ST elevation (STEMI) myocardial infarction of unspecified site Diagnosis: Principal Status: Acute (3) Stented coronary artery ICD Code: Z95.5 - Presence of coronary angioplasty implant and graft Diagnosis: Principal Procedures Now in status post Retrograde heart catheterization with left ventriculography and selective angiography, Thrombectomy, angioplasty, and stenting of the mid left anterior descending coronary artery, moderate sedation, with Diagnosis of ST elevation [place], coronary artery disease with chronic total occlusion of the mid right coronary and acute occlusion of the left anterior descending coronary artery. Overall preserved left ventricular systolic function Brief History - From Admission This is as pleasant 76 y/o Male who [place] developed a sternal chest pain and Pressure, he called 911 was seen in ER as STEMI he had chest pain of 30 minutes duration, 10/10 in intensity, received Nitroglycerin by EMS, to a total of sublingual dosages, his pain improved to 3/10, he has history of CAD and status post Seven stents placement. he is in status post Retrograde heart catheterization with left ventriculography and selective angiography, Thrombectomy, angioplasty, and stenting of the mid left anterior descending coronary artery, moderate sedation , with Diagnosis of ST elevation [place], coronary artery disease with chronic total occlusion of the mid right coronary and acute occlusion of the left anterior descending coronary artery. Overall preserved left ventricular systolic function, seen by his primary economic development specialist Doctor Mehul Solis and recommended for discharge will proceed with discharge at this time CARDIAC CATHETERIZATION Pt Name: ELVIS ARORA#: [id number]:[id number] By:Mehul Solis [facility] #: [id number] CBC/BMP: 05/15/17 1025 05/15/17 1025 Significant Findings Laboratory Tests Test 05/14/17 13:10 05/14/17 20:40 05/15/17 10:25 Red Blood Count 4.06 MIL/MM3 (4.50-5.90) 4.13 MIL/MM3 (4.50-5.90) 4.42 MIL/MM3 (4.50-5.90) Bedside Hemoglobin 12.9 G/DL (13.0-17.0) Bedside Hematocrit 38.0 % (39.0-51.0) Monocytes (%) (Auto) 8.8 % (0.0-8.0) 10.3 % (0.0-8.0) Eosinophils (%) (Auto) 4.8 % (0.0-4.0) Activated Partial Thromboplast Time 21.7 SEC (24.3-30.1) Bedside Blood Urea Nitrogen 24 MG/DL (5-21) Bedside Glucose 128 MG/DL (68-110) Total Creatine Kinase 359 U/L (39-308) 491 U/L (39-308) Creatine Kinase MB 7.2 NG/ML (0.5-3.6) 21.1 NG/ML (0.5-3.6) B-Type Natriuretic Peptide 184 PG/ML (0-100) Creatinine 1.39 MG/DL (0.60-1.30) Estimat Glomerular Filtration Rate 49 ML/MIN (>89) Aspartate Amino Transf (AST/SGOT) 71 U/L (15-37) Creatine Kinase MB % 4.3 % (0.0-4.0) Triglycerides Level 161 MG/DL (42-150) LDL Cholesterol 101 MG/DL (0-99) Folate 19.1 NG/ML (3.1-17.5) Imaging Last Impressions Chest X-Ray 05/14/17 1314 Signed Impressions: Service Date/Time: Sunday, May 14, 2017 13:20 - CONCLUSION: Mild underinflation with mild interstitial prominence bilaterally. Some of this could be related to atelectasis at the lung bases. Mild pulmonary edema could have a similar appearance. Neftaly Monae MD PE at Discharge GENERAL: Obese patient in no acute distress. SKIN: Focused skin assessment reveals no rash and nodules. Skin is Warm and dry. HEAD: Atraumatic. Normocephalic. EYES: Pupils equal and round. No scleral icterus. No injection or drainage. ENT: No nasal bleeding or discharge. Mucous membranes pink and moist. NECK: Trachea midline. No JVD. CARDIOVASCULAR: Regular rate and rhythm. No murmur appreciated. RESPIRATORY: No accessory muscle use. Clear to auscultation. Breath sounds equal bilaterally. GASTROINTESTINAL: Abdomen soft, non-tender, nondistended. Hepatic and splenic margins not palpable. MUSCULOSKELETAL: No obvious deformities. No clubbing. No cyanosis. No edema. NEUROLOGICAL: Awake and alert. No obvious cranial nerve deficits. Motor grossly within normal limits. Normal speech. PSYCHIATRIC: Appropriate mood and affect; insight and judgment normal. Hospital Course [facility] This is as pleasant 76 y/o Male who [place] developed a sternal chest pain and Pressure, he called 911 was seen in ER as STEMI he had chest pain of 30 minutes duration, 10/10 in intensity, received Nitroglycerin by EMS, to a total of sublingual dosages, his pain improved to 3/10, he has history of CAD and status post Seven stents placement. he is in status post Retrograde heart catheterization with left ventriculography and selective angiography, Thrombectomy, angioplasty, and stenting of the mid left anterior descending coronary artery, moderate sedation , with Diagnosis of ST elevation [place], coronary artery disease with chronic total occlusion of the mid right coronary and acute occlusion of the left anterior descending coronary artery. Overall preserved left ventricular systolic function, seen by his primary economic development specialist Doctor Mehul Solis and recommended for discharge will proceed with discharge at this time Assessment and Plan 1. STEMI started on heparin in ER, started on Cardiac monitoring, status post Emergent left heart Catheterization chest x-ray which suggest a degree of pulmonary edema although he didn't complain of shortness of breath. in a Patient with History of CAD and status post Seven stents placement. Now in status post Retrograde heart catheterization with left ventriculography and selective angiography, Thrombectomy, angioplasty, and stenting of the mid left anterior descending coronary artery, moderate sedation, with Diagnosis of ST elevation [place], coronary artery disease with chronic total occlusion of the mid right coronary and acute occlusion of the left anterior descending coronary artery. Overall preserved left ventricular systolic function, seen by his primary economic development specialist Doctor Mehul Solis and recommended for discharge will proceed with discharge at this time 2. Hypertension controlled. as per economic development specialist Doctor Mehul Solis No angina, CHF, or arrhythmias. Groin stable. DC home. Continue Brilinta and baby ASA for 1 year. Continue lisinopril, metoprolol, high dose atorvastatin. F/u with me in 2 weeks. Code Status Full Code. Discussed Condition With patient and relative in the room. discharge Home Now. Pt Condition on Discharge: Good Discharge Disposition: Discharge Home Discharge Time: <= 30 minutes Discharge Instructions DIET: Follow Instructions for: Heart Healthy Diet, Diabetic Diet Activities you can perform: Regular-No Restrictions Bruce Che MD May 15, 2017 15:19
[2017-05-15 16:24] LABS: HEMOGLOBIN A1C 5.8 % (4.3-6.0)
[2017-05-15] MEDS ORDERED: METOPROLOL TARTRATE 25 MG TAB PO SCH (21:00)
[2017-05-16] MEDS ORDERED: LISINOPRIL 10 MG TAB PO SCH (09:00)
--- NOTE | 2017-05-16 23:28 | EKG ---
Date Performed: 05/15/2017 Time Performed: 05:12:28 PTAGE: 76 years EKG: CONSIDER ACUTE ST ELEVATION CA Sinus bradycardia Right bundle branch block Anterose ptal ST elevation, CONSIDER ACUTE INFARCT Abnormal ECG PREVIOUS TRACING : 05/14/2017 13.07 Since previous tracing, no significant change noted DOCTOR: Brett Amaro Interpretating Date/Time 05/16/2017 23:27:31
== END 2017-05-15 17:14 | disposition home or self-care (01) | DRG 247 ==
LOC: NEPE 13:06 → NEDA 13:41 → HCIS 14:56
PROVIDERS: ADMIT Hospitalist; ATTEND Hospitalist
PROC: 027034Z Dilation of Coronary Artery, One Artery with Drug-eluting Intraluminal Device, Percutaneous Approach (ICD-10-PCS; principal; 2017-05-14)
PROC: 4A023N7 Measurement of Cardiac Sampling and Pressure, Left Heart, Percutaneous Approach (ICD-10-PCS; 2017-05-14)
PROC: 02C03ZZ Extirpation of Matter from Coronary Artery, One Artery, Percutaneous Approach (ICD-10-PCS; 2017-05-14)
PROC: B2111ZZ Fluoroscopy of Multiple Coronary Arteries using Low Osmolar Contrast (ICD-10-PCS; 2017-05-14)
PROC: B2151ZZ Fluoroscopy of Left Heart using Low Osmolar Contrast (ICD-10-PCS; 2017-05-14)
DX: I21.02 ST elevation (STEMI) myocardial infarction involving left anterior descending coronary artery (principal); I35.0 Nonrheumatic aortic (valve) stenosis; E11.9 Type 2 diabetes mellitus without complications; I10 Essential (primary) hypertension; I25.10 Atherosclerotic heart disease of native coronary artery without angina pectoris
CPT/HCPCS: 71045; 80048; 80061; 80076; 82310; 82550; 82552; 82607; 82746; 83036; 83735; 83880; 84439; 84443; 84484; 85002; 85025; 85610; 85730; 92941; 93005; 93458; 96374; 99152; 99153; C1725; C1757; C1769; C1874; C1887; C1893; C9460; J1644; J2250; J3010; J7030; Q9967